=== PATIENT | male | born 1970 | race Caucasian/White ===

== ENCOUNTER 2017-02-27 08:46 | Emergency (ER) | payer MEDICAID ==
[~2017-02-27] VITALS: Ht 157.5 cm; Wt 70.0 kg
[2017-02-27 08:49] VITALS: Ht 157.5 cm; Wt 70.0 kg
[2017-02-27] MEDS ORDERED: CEFTRIAXONE 250 MG INJ IM ONE (10:00)
[2017-02-27] MEDS ORDERED: LIDOCAINE 1% (MDV) 20 ML INJ SC ONE (10:00)
[2017-02-27] MEDS ORDERED: AZITHROMYCIN 250 MG TAB PO ONE (10:00)
[2017-02-27] MEDS ORDERED: CLOT30CR24 TOP (10:35)
--- NOTE | 2017-02-27 16:46 | ERD ---
ER Documentation Chief Complaint Chief Complaint blister/wart on penis x 1 week HPI This 46-year-old male who presents the emergency department today complaining of something on his penis for the past week. Patient states that one month ago he had a sexual encounter with a woman at a constitution party. States he used a condom but the condom fell off. Denies any pain, pain with urination, fevers or chills. He has not tried any medication. ROS All systems reviewed and are negative except as per history of present illness. Medications Home Meds Active Scripts Clotrimazole* (Clotrimazole* AF) 1% - 30 Gm Cream.gm., 1 APPLIC TOP BID for 7 Days, #1 TUB Prov:MARCIA DENNIS PA-C 02/27/17 Allergies Allergies: Coded Allergies: No Known Allergy (Unverified , 02/27/17) PMhx/Soc Medical and Surgical Hx: pt denies Medical Hx, pt denies Surgical Hx Hx Alcohol Use: Yes Hx Tobacco Use: Yes Smoking Status: Current every day smoker Physical Exam Vitals Vital Signs Date Time Temp Pulse Resp B/P Pulse Ox O2 Delivery O2 Flow Rate FiO2 02/27/17 08:49 97.1 78 18 128/94 98 Physical Exam Const: NAD Head: Atraumatic Eyes: Normal Conjunctiva ENT: Normal External Ears, Nose and Mouth. Neck: Full range of motion..~ No meningismus. Resp: Clear to auscultation bilaterally Cardio: Regular rate and rhythm, no murmurs Abd: Soft, non tender, non distended. Normal bowel sounds : Uncircumcised penis evidence of skin discoloration along foreskin. Testicles descended bilaterally and nontender. No purulent drainage from urethra. No vesicles or lesions. Skin: No petechiae or rashes Neur: Awake and alert Psych: Normal Mood and Affect Results 24 hrs Current Medications Medications (Trade) Dose Ordered Sig/Lv Route PRN Reason Start Time Stop Time Status Last Admin Dose Admin Lidocaine (Xylocaine 1% (Mdv) 20 ml) 20 ml ONCE ONCE SC 02/27/17 10:00 02/27/17 10:01 DC 02/27/17 10:00 Ceftriaxone Sodium (Rocephin) 250 mg ONCE ONCE IM 02/27/17 10:00 02/27/17 10:01 DC 02/27/17 10:00 Azithromycin (Zithromax) 1,000 mg ONCE ONCE PO 02/27/17 10:00 02/27/17 10:01 DC 02/27/17 10:00 Procedures/MDM This is a 46-year-old male who presents emergency department today complaining of something on his penis. On physical exam patient has some mild skin discoloration underneath his foreskin. Patient denies any pain and there are no lesions. Low suspicion for herpes simplex syphilis. There is no penile discharge. Low suspicion for gonorrhea or chlamydia however offer to treat patient prophylactically. Patient agreed and he was therefore given Rocephin and azithromycin here in the emergency department. His symptoms at this time appear more fungal in nature and I have given the patient a prescription for clotrimazole cream. Patient is afebrile and otherwise well-appearing. Patient denied any urinary complaints however his urine was sent for gonorrhea chlamydia. At this time the patient is stable for discharge and outpatient management. Patient should follow up with their PCP in the next 1-2 days. They may return to the emergency department sooner for any persistent or worsening of symptoms. Patient understood and agreed with the plan. Departure Diagnosis: Primary Impression: Rash of penis Condition: Fair Patient Instructions: Understanding STDs, Fungal Infection, Skin [General] [facility]errals: [facility] Usted se perez hecho un examen mdico de control que le indica que no est en rayo condicin que requiera tratamiento urgente en el Departamento de Emergencia. Un estudio ms profundo y el tratamiento de jameson condicin pueden esperar sin ningn riesgo hasta que usted sea atendida/o en el consultorio de jameson mdico o rayo cl susie. Es responsabilidad suya arreglar rayo rene para el seguimiento del lillian. MANEJO DE CONDICIONES NO URGENTES EN EL FUTURO 1) Si usted tiene un mdico de atencin primaria: Usted debera llamar a jameson mdico de atencin primaria antes de venir al departamento de emergencia. Despus de las horas de consultorio, jameson doctor o jameson asociado/a est disponible por telfono. El mdico o enfermero de gualberto en el servicio telefnico puede asesorarle por alcira medio para atender el problema, o lillian contrario se puede programar rayo rene. 2) Si usted no tiene un mdico de atencin primaria: Llame al mdico o clnica de referencia que aparece abajo aicha las horas de consultorio para hacer rayo rene para que le vean. CLINICAS: [facility] [phone] [facility] [phone] [facility] [phone] [place] [address] [phone] [place] [phone] [facility] [phone] Additional Instructions: Llame al doctor MAANA y uriel rayo RENE PARA DENTRO DE 1-2 ESPITIA.Dgale a la secretaria que nosotros le instruimos hacer esta rene.Avise o llame si jameson condicin se empeora antes de la rene. Regresa aqui si peor o no mejor. Use Cream as prescribed PROUSE,MARCIA Santo PA-C Feb 27, 2017 16:46
== END 2017-02-27 10:54 | disposition home or self-care (01) ==
LOC: FTE 08:46
DX: A63.0 Anogenital (venereal) warts (principal); F17.210 Nicotine dependence, cigarettes, uncomplicated; R21 Rash and other nonspecific skin eruption
CPT/HCPCS: 96372; J0696; Z7502; Z7610